=== PATIENT | female | born 1965 | race Caucasian/White ===

== ENCOUNTER → 2018-07-14 | Outpatient (CLI) | payer OTHER | LOC: FIMAGING 17:34 | PROVIDERS: ATTEND Internal Medicine | DX: H93.A2 Pulsatile tinnitus, left ear (principal); R51 Headache ==

== ENCOUNTER → 2018-07-20 | Outpatient (CLI) | payer OTHER ==
[~2018-07-20] MED LIST: GADOBUTROL 10 ML VIAL IVP ONE
== END ==
LOC: FIMAGING 11:42
PROVIDERS: ATTEND Internal Medicine
DX: G93.9 Disorder of brain, unspecified (principal)
CPT/HCPCS: A9585

== ENCOUNTER → 2018-11-18 | Outpatient (CLI) | payer OTHER | LOC: FIMAGING 11:56 | PROVIDERS: ATTEND Internal Medicine | DX: Z12.31 Encounter for screening mammogram for malignant neoplasm of breast (principal); Z80.3 Family history of malignant neoplasm of breast; Z13.820 Encounter for screening for osteoporosis; M81.0 Age-related osteoporosis without current pathological fracture; E04.1 Nontoxic single thyroid nodule ==

== ENCOUNTER → 2018-12-24 | Outpatient (CLI) | payer OTHER | LOC: FIMAGING 14:29 ==